=== PATIENT | male | born 1980 | race Caucasian/White ===

== ENCOUNTER 2020-03-06 12:47 | Emergency (ER) | payer MEDICARE, MEDICAID, SELFPAY ==
[2020-03-06] VITALS (10 sets, daily range): BP systolic 113–152; BP diastolic 72–115; PULSE 88–110; RESP 18–24; TEMP 36.7–37.1; O2SAT 92–98; BMI 29.1
--- NOTE | 2020-03-06 14:19 | ED_ITS ---
HPI - Psych General Chief Complaint: Psychiatric Symptoms Stated Complaint: crisis Time Seen by Provider: 03/06/20 13:30 Source: patient Mode of arrival: ambulatory Limitations: no limitations History of Present Illness HPI Narrative: 39 y/o male with history of alcohol abuse, alcoholic gastritis who presents to the ED with suicidal ideation after consuming alcohol earlier today. He states he drank 1 pint of vodka earlier today. He lives in a sober house and recently started drinking again. He knows he messed up and he has been having thoughts of wanting to hurt himself. He reports history of the same with attempt in the past of taking excessive amounts of sleeping pills. Related Data Allergies Allergy/AdvReac Type Severity Reaction Status Date / Time No Known Allergies Allergy Unverified 11/10/19 19:52 [No Known Allergies*] Review of Systems Constitutional: Constitutional: Reports anorexia, Denies chills, Reports difficulty sleeping and Denies fever(s) Eyes: Eyes: Reports no additional eye complaints ENT: Reports system reviewed and no additional complaints, except as documented Cardiovascular: Cardiovascular: Denies chest pain and Reports Epigastric Pain Respiratory: Respiratory: Denies chest congestion, Denies cough and Denies hemoptysis Gastrointestinal: Gastrointestinal: Denies abdominal pain, Denies melena, Reports dyspepsia, Reports heartburn, Denies diarrhea and Denies vomiting Musculoskeletal: Musculoskeletal: Denies myalgias Neurologic: Denies convulsions and Denies seizure-like activity Psychiatric: Psychiatric: Reports abnormal sleep pattern, Reports anxiety, Reports change in appetite, Reports depression, Reports hopelessness, Reports panic attacks and Reports suicidal ideation Endocrine: Endocrine: Reports no additional endocrine complaints Hematologic/Lymphatic: Hematologic/Lymphatic: Reports no additional he matologic/lymphatic complaints Allergic/Immunologic: Allergic/Immunologic: Reports no additional allergic/immunologic complaints [facility] Past Medical History Attestation statement: The following information was validated with the patient. Social History Social History Advance Directives: No Advance Directives Information Provided: Yes Physical Exam Vital Signs: Vital Signs: Last Vital Signs Temp 98.4 F 03/06/20 15:19 Pulse 88 03/06/20 15:19 Resp 18 03/06/20 15:19 BP 113/72 03/06/20 15:19 Pulse Ox 97 03/06/20 15:19 Body Mass Index 29.1 Const: General: cooperative, healthy appearing, comfortable, no acute distress and well developed Orientation/consciousness: patient oriented x3 HENMT: Head: Yes normal to inspection Ears: hearing grossly normal bilaterally General nose exam: Normal external nose present Eyes: General: appearance normal, both eyes and all related structures Pupi ls: Equal, round and reactive pupils present Neck: Neck: Yes normal visual inspection Chest: Chest palpation & inspection: normal inspection of the chest Resp: Effort & Inspection: normal respiratory effort and able to speak in complete sentences Auscultation: clear to auscultation bilaterally Cardio: Rate: regular rate Rhythm: regular rhythm GI: Inspection: Yes normal to inspection Palpation (GI): Soft to palpation and Tenderness to palpation present (GI) in the epigastrum Auscultation: normal bowel sounds Skin: General skin exam: no rashes or lesions noted Neuro: General: patient oriented x3 and moves all extremities Cranial nerv es: Yes Equal, round and reactive pupils present Extrem: General: Yes normal to inspection Psych: Appearance: grossly normal Mental Status: mental status grossly normal Speech and movement: Normal speech and movement present Affect: Labile affect present Attitude: cooperative and Avoids eye contact (attititude/behavior) Thought content: Suicidality present Insight: Fair insight present (Psych) Course Course Course Narrative: 39 y/o male with heavy ETOH use over the last 1.5 weeks presenting with SI after relapse. Admits to drinking earlier today and already concerned he may be going into withdrawal. Asking for Librium with tremors on exam. Utox and bloodwork sent. Will give low dose librium to get ahead of withdrawal symptoms. HR & BP are normal. Will monitor closely. Will have him evaluated by N. [facility] - Psych Lab Data Attestation: I reviewed the patient's lab results. Result diagrams: 03/06/20 15:28 03/06/20 15:28 Labs: Lab Results 03/06/20 03/06/20 03/06/20 Range/Units 14:22 15:28 15:28 WBC 8.0 (4.8-10.8) X10*3/uL RBC 5.77 (4.60-5.80) X10*6/uL Hgb 16.3 (14.0-18.0) g/dl Hct 46.7 (42-52) % MCV 80.9 (80-98) fL MCH 28.2 (27.0-33.0) pg MCHC 34.9 (31.0-36.0) g/dl RDW 13.2 (11.0-16.0) % Plt Count 359 (160-400) X10*3/uL MPV 9.4 (9.4-12.4) fL Immature Gran % (Auto) 0.1 (0.0-0.4) % Neut % (Auto) 75.7 H (45-73) % Lymph % (Auto) 13.1 L (20-40) % [place] % (Auto) 10.8 (2-11) % Eos % (Auto) 0.0 (0-4) % Baso % (Auto) 0.3 (0-2) % Lymph # (Auto) 1.0 L (1.2-4.9) X10*3/uL [place] # (Auto) 0.9 (0.1-1.2) X10*3/uL Eos # (Auto) 0.0 (0.0-0.4) X10*3/uL Baso # (Auto) 0.0 (0.0-0.2) X10*3/uL Abs Immat Gran (auto) 0.01 (0.00-0.03) X10*3/uL Absolute Neuts (auto) 6.0 (2.0-8.3) X10*3/uL Absolute Nucleated RBC 0.000 (0.0-0.012) X10*3/uL Nucleated RBC % (auto) 0.0 (0.0-0.2) /100WBC Urine Opiates Screen Not Detected (Not Detect) Ur Barbiturates Screen Not Detected (Not Detect) Ur Phencyclidine Scrn Not Detected (Not Detect) Ur Amphetamines Screen Not Detected (Not Detect) U Benzodiazepines Scrn Not Detected (Not Detect) Urine Cocaine Screen Not Detected (Not Detect) U Marijuana (THC) Screen Not Detected (Not Detect) Ethyl Alcohol 112 mg/dL Discharge Plan Discharge Clinical Impression: Suicidal ideation, Alcohol abuse
[2020-03-06 15:09] LABS: Amphetamine Screen Urine Not Detected (Not Detect); Barbiturates, Urine Not Detected (Not Detect); Benzodiazepines Screen Urine Not Detected (Not Detect); Cannabinoid Screen Urine Not Detected (Not Detect); Cocaine Screen Urine Not Detected (Not Detect); Opiate Screen Urine Not Detected (Not Detect); Phencyclidine Screen Urine Not Detected (Not Detect)
--- NOTE | 2020-03-06 15:14 | PC.NURSE ---
nurse to nurse given to laurent (anjelica). pt moved to the pod, bed [facility]
[2020-03-06] MEDS: chlordiazePOXIDE HCl 25 MG CAPSULE PO (15:31)
[2020-03-06 15:33] LABS: MANUAL DIFF FLAG NO
--- NOTE | 2020-03-06 15:37 | PC.NURSE ---
Late entry: pt transferred from main ED- pt alert, oriented, pleasant. Pt reports he has been living at a sober living facility but that he 'messed up' for the past week and a half and has been using etoh. Labs drawn, pt medicated as ordered.
[2020-03-06 15:39] LABS: Basophils Percent Auto 0.3 % (0-2); Hematocrit 46.7 % (42-52); Hemoglobin 16.3 g/dl (14.0-18.0); Imm Gran Abs Auto 0.01 X10*3/uL (0.00-0.03); Imm Gran Pct Auto 0.1 % (0.0-0.4); Lymphocytes Percent Auto 13.1 % (20-40); Mean Corpuscular HGB Conc 34.9 g/dl (31.0-36.0); Mean Corpuscular Hemoglobin 28.2 pg (27.0-33.0); Mean Corpuscular Volume 80.9 fL (80-98); Mean Platelet Volume 9.4 fL (9.4-12.4); Monocytes Absolute Auto 0.9 X10*3/uL (0.1-1.2); Monocytes Percent Auto 10.8 % (2-11); Neutrophils Percent Auto 75.7 % (45-73); Platelet Count 359 X10*3/uL (160-400); Red Blood Count 5.77 X10*6/uL (4.60-5.80); Red Cell Distribution Width 13.2 % (11.0-16.0)
[2020-03-06 15:52] LABS: Ethanol 112 mg/dL
[2020-03-06 15:57] LABS: Alanine Aminotransferase 26 U/L (0-40); Albumin Level 5.4 g/dL (3.5-5.0); Alkaline Phosphatase 63 U/L (39-117); Anion Gap 20 (12-20); Aspartate Amino Transferase 26 U/L (5-37); Blood Urea Nitrogen 7 mg/dL (9-16); Calcium 9.9 mg/dL (8.4-10.2); Carbon Dioxide 29 mmol/L (22-29); Chloride 95 mmol/L (96-108); Creatinine Clr Calc Pharmacy 111.6; Estimated Glomerular Filt Rate > 60; Glucose Random 132 mg/dL (60-115); Potassium 3.2 mmol/l (3.3-5.1); Salicylate < 5.0 mg/dL (15-30); Sodium 141 mmol/L (135-145); Total Protein 8.2 g/dL (6.5-8.0)
[2020-03-06 16:09] LABS: Acetaminophen LAB < 1 mcg/mL (<30)
[2020-03-06] MEDS: Potassium Chloride ER 20 MEQ TAB.ER.PRT 60 MEQ PO (16:15)
[2020-03-06 16:46] LABS: COVID-19 Test Negative (Negative); IDNOW Serial# 9DD0AD1C
--- NOTE | 2020-03-06 16:58 | PC.NURSE ---
spoke w/ dr willis re: pt symptoms of withdrawal, hx seizing.
[2020-03-06] MEDS: chlordiazePOXIDE HCl 25 MG CAPSULE 50 MG PO (17:01)
--- NOTE | 2020-03-06 18:34 | PC.NURSE ---
Pt reports only minimal relief of symptoms after librium given. Unable to eat. reporting escalating anxiety, restlessness, and dizziness. Reported to LAURENT Alexandra in main ED.
--- NOTE | 2020-03-06 18:39 | PC.NURSE ---
Reported vital signs, CIWA score to MARC Costa. Pt transferred to main ED. Report given to LAURENT Alexandra
--- NOTE | 2020-03-06 18:45 | PC.NURSE ---
Pt transferred to main ED
[2020-03-06] MEDS: LORazepam 2 MG/ML VIAL IM (19:00)
--- NOTE | 2020-03-06 19:00 | PC.NURSE ---
ASSUMED CARE OF PT. PT RESTING IN STRETCHER AT THIS TIME. PT WAKES TO VERBAL STIMULI, RESPIRATIONS N/L. SKIN W/D. WILL CONTINUE TO MONITOR PT.
--- NOTE | 2020-03-06 19:00 | PC.NURSE ---
medicated with ativan im for gross tremors and etoh withdrawal. sz pads in place. pt has call jhoan.
--- NOTE | 2020-03-06 19:30 | PC.NURSE ---
PT ADMITS TO S/I WITHOUT A PLAN, DENIES H/I, DENIES A/V HALLUCINATIONS. [facility] NURSE AND MD AWARE OF PT. WILL CONTINUE TO MONITOR PT.
--- NOTE | 2020-03-06 19:56 | PC.NURSE ---
PT RESTING QUIETLY IN STRETCHER ON MONITOR WITH A HR OF 110. VS OBTAINED. PT WAKES TO VOICE, SKIN W/D, DENIES ANY COMPLAINTS AT THIS TIME. WILL CONTINUE TO MONITOR PT.
--- NOTE | 2020-03-06 21:57 | PC.NURSE ---
[facility] TO ED TO EVALUATE PT. PT RESTING IN STRETCHER, WAKES TO VERBAL STIMULI, SKIN W/D. PT DENIES ANY S/S OF W/D. PT REMAINS ON MONITOR WITH HR 108. WILL CONTINUE TO MONITOR PT.
[2020-03-06] MEDS: LORazepam 1 MG TABLET 2 MG PO (23:06)
--- NOTE | 2020-03-06 23:21 | PC.NURSE ---
Patient just got transferred from main ED, [facility] finished with assessment, depositions is detox bed search, patient is agreement with d/c plan, CIWA assessed per order scored 8, provider notified/ordered Ativan 2 mg/administered as ordered, will continue to monitor.
[2020-03-07 00:23] VITALS: BP 132/93; PULSE 110; RESP 18; TEMP 36.7; O2SAT 99
--- NOTE | 2020-03-07 06:34 | PC.NURSE ---
Spoke with Liza, [facility] staff, to clarify patient's disposition, notified us to call [facility] at [phone] for further clarification, will continue to monitor.
--- NOTE | 2020-03-07 08:10 | PC.NURSE ---
spoke with [facility], pt is able to be discharged and needs to fins is own bed for detox. pt has list of facilities in room and was advised to call if he still plans to go to detox. will relay information to NURSING STUDENT whe he rounds in pod.
[2020-03-07 08:20] VITALS: BP 148/106; PULSE 128; TEMP 36.9; O2SAT 97
--- NOTE | 2020-03-07 09:11 | PC.NURSE ---
pt came out of room requesting librium. pt does not seem to be in any withdrawal, has been sleeping most of the morning. spoke with Johnny from care team, will call Prov. where pt could potentially be going for detox and make sure ok if pt were to take here at hospital but pt is back in room sleeping at this time.
--- NOTE | 2020-03-07 09:24 | MHC.RECOVSUP ---
Recovery Support note: Patient is a 39 year old Taiwanese speaking male who presented to [facility] intoxicated reporting SI. Patient was cleared by [facility] with a recommendation for patient to go to [facility]. Patient completed intake with [facility] and has an admission time scheduled for 1500. This repairer typewriter awaits the [facility] evaluation to send to [place] (fax- [phone]). This repairer typewriter will be available to assist with arranging transportation for patient.
[2020-03-07 11:32] VITALS: RESP 18
--- NOTE | 2020-03-07 11:33 | PC.NURSE ---
patient currently in room sleeping, will continue to monitor.
[2020-03-07] MEDS: chlordiazePOXIDE HCl 25 MG CAPSULE PO (12:01)
--- NOTE | 2020-03-07 12:03 | PC.NURSE ---
patient requested librium, provider notified and order put in, patient was medicated per order, patient will be going to [facility] for 3pm, will continue to monitor.
--- NOTE | 2020-03-07 14:01 | PC.NURSE ---
patient is pacing in the unit with anticipation of leaving
--- NOTE | 2020-03-07 14:21 | PC.NURSE ---
per xavi, patient is to be discharged to waiting room to await lyft to bring him to [facility].
== END 2020-03-07 14:39 | disposition other institution (70) ==
PROVIDERS: Physician Assistant; Emergency Provider Emergency Medicine Emergency Medical Services
DX: F10.129 Alcohol abuse with intoxication, unspecified (principal); K29.20 Alcoholic gastritis without bleeding; R45.851 Suicidal ideations; Y90.5 Blood alcohol level of 100-119 mg/100 ml; Z20.822 Contact with and (suspected) exposure to COVID-19
CPT/HCPCS: 36415; 80053; 80307; 80320; 85025; 87635; 96372; 99285; G0480; J2060

== ENCOUNTER 2020-03-11 19:00 | Inpatient (IN) | payer MEDICARE, MEDICAID, SELFPAY ==
[2020-03-11 19:11] VITALS: BP 147/112; PULSE 91; RESP 18; TEMP 36.3; O2SAT 96; BMI 25.0
[2020-03-11 20:26] LABS: Amphetamine Screen Urine Not Detected (Not Detect); Barbiturates, Urine Not Detected (Not Detect); Benzodiazepines Screen Urine POSITIVE (Not Detect); Cannabinoid Screen Urine Not Detected (Not Detect); Cocaine Screen Urine Not Detected (Not Detect); Opiate Screen Urine Not Detected (Not Detect); Phencyclidine Screen Urine Not Detected (Not Detect)
[2020-03-11 20:50] VITALS: BP 158/120; PULSE 130; RESP 20; TEMP 36.6; O2SAT 98
--- NOTE | 2020-03-11 21:02 | PC.NURSE ---
ROBERT faxed/called/spoke with Drew/confirmed receipt of referral.
--- NOTE | 2020-03-11 21:22 | ED_ITS ---
HPI - Psych General Chief Complaint: Psychiatric Symptoms Stated Complaint: CRISIS Time Seen by Provider: 03/11/20 20:51 Source: patient Mode of arrival: ambulatory Limitations: no limitations History of Present Illness HPI Narrative: Patient presents to ED for suicidal ideation. Patient was at detox at [place] and while there may persistent suicidal ideation with no plan. Patient denies any auditory or visual hallucinations. Related Data Home Medications Medication Instructions Recorded Confirmed alum-mag hydroxide-simeth [Mylanta] 30 ml PO Q4H PRN 03/11/20 03/11/20 buprenorphine-naloxone [Suboxone] 1 film SUBLINGUAL DAILY 03/11/20 03/11/20 clonidine HCl 0.3 mg PO BID 03/11/20 03/11/20 dextroamphetamine-amphetamine 30 mg PO BID@0630,1630 03/11/20 03/11/20 [Adderall] escitalopram oxalate 20 mg PO DAILY 03/11/20 03/11/20 gabapentin 800 mg PO BID 03/11/20 03/11/20 hydroxyzine pamoate 25 mg PO QID PRN 03/11/20 03/11/20 loperamide 4 mg PO DAILY PRN 03/11/20 03/11/20 lorazepam [Ativan] 1 mg PO BID 03/11/20 03/11/20 melatonin 3 mg PO BEDTIME PRN 03/11/20 03/11/20 methocarbamol 750 mg PO Q8H PRN 03/11/20 03/11/20 multivitamin with iron-mineral 1 tab PO DAILY 03/11/20 03/11/20 [Iron/Multivitamin/Mineral] oxcarbazepine 300 mg PO BID 03/11/20 03/11/20 trazodone 200 mg PO BEDTIME 03/11/20 03/11/20 Allergies Allergy/AdvReac Type Severity Reaction Status Date / Time No Known Allergies Allergy Unverified 11/10/19 19:52 [No Known Allergies*] Review of Systems Review of Systems: Yes all other systems are reviewed and are negative Constitutional: Constitutional: Reports as per HPI and Reports no additional constitutional complaints Eyes: Eyes: Reports as per HPI and Reports no additional eye complaints ENT: Reports system reviewed and no additional complaints, except as documented and Reports as per HPI Cardiovascular: Cardiovascular: Reports as per HPI and Reports no additional cardiovascular complaints Respiratory: Respiratory: Reports as per HPI and Reports no additional respiratory complaints Gastrointestinal: Gastrointestinal: Reports as per HPI and Reports no additional gastrointestinal complaints Musculoskeletal: Musculoskeletal: Reports no additional musculoskeletal complaints and Reports as per HPI Neurologic: Reports system reviewed and no additional complaints, except as documented and Reports as per HPI Psychiatric: Psychiatric: Reports no additional psychiatric complaints, Reports as per HPI and Reports suicidal ideation [facility] Social History Social History Advance Directives: No Advance Directives Information Provided: Yes Physical Exam Vital Signs: Vital Signs: Last Vital Signs Temp 98.2 F 03/11/20 23:40 Pulse 124 H 03/11/20 23:40 Resp 20 03/11/20 23:40 BP 128/85 03/11/20 23:40 Pulse Ox 97 03/11/20 23:40 Body Mass Index 25.0 Const: General: cooperative, healthy appearing, comfortable, no acute distress, well developed, alert, awake and Physically active Orientation/consciousness: patient oriented x3 HENMT: Head: Yes normal to inspection, Yes No palpable skull fracture present, Yes normocephalic and Yes atraumatic Eyes: General: appearance normal, both eyes and all related structures Neck: Neck: Yes normal visual inspection, Yes full ROM, Yes no lymphadenopathy, Yes no meningeal signs, Yes trachea midline, Yes supple and No tender Resp: Effort & Inspection: normal respiratory effort and able to speak in complete sentences Auscultation: clear to auscultation bilaterally Cardio: Jugular venous distension: no JVD Heart sounds: S1 normal heart sound present and S2 normal heart sound present GI: Inspection: Yes normal to inspection and No abdominal wall ecchymosis Palpation (GI): Soft to palpation, not firm, nontender, no guarding and not rigid : General: No CVA tenderness and Yes no CVA tenderness Back/Spine/Pelvis: Back: no CVA tenderness, No CVA tenderness and No back tenderness Skin: General skin exam: no rashes or lesions noted and elasticity normal Neuro: General: patient oriented x3, gait normal, no meningeal signs and CN's II-XI intact bilaterally Cranial nerves: Yes CN's II-XII intact bilaterally Extrem: General: Yes normal to inspection and Yes full ROM Psych: Appearance: grossly normal, well kempt and not disheveled Course Course Course Narrative: Patient will have urine tox sent and be evaluated by [facility] [facility]. Reevaluation(s) Reevaluation #1: Patient evaluated by care team consulted Omayra who states patient will be a voluntary bed search for depression/alcohol abuse. Time: 00:19 MDM - Psych MDM Narrative Medical decision making narrative: Depression Restraints Face to Face Assessment: Face to Face Assessment: Current Situation: After assessment of the patient, a review of the pertinent medical record and a discussion with nursing staff, I feel the patient requires a restrain intervention. Reaction To: [] Medical Condition: [] Behavioral State: [] Continued Need: [] Lab Data Labs: Lab Results 03/11/20 03/11/20 Range/Units 19:57 22:13 Urine Opiates Screen Not Detected (Not Detect) Ur Barbiturates Screen Not Detected (Not Detect) Ur Phencyclidine Scrn Not Detected (Not Detect) Ur Amphetamines Screen Not Detected (Not Detect) U Benzodiazepines Scrn POSITIVE H (Not Detect) Urine Cocaine Screen Not Detected (Not Detect) U Marijuana (THC) Screen Not Detected (Not Detect) COVID-19 (BRYCE) Negative (Negative) COVID-19 Clin Com See Note Discharge Plan Discharge Clinical Impression: Depression Prescriptions: No Action clonidine HCl 0.3 mg Tablet 0.3 mg PO BID RF: 0 oxcarbazepine 300 mg Tablet 300 mg PO BID RF: 0 gabapentin 800 mg Tablet 800 mg PO BID RF: 0 trazodone 100 mg Tablet 200 mg PO BEDTIME RF: 0 lorazepam [Ativan] 1 mg Tablet 1 mg PO BID RF: 0 escitalopram oxalate 20 mg Tablet 20 mg PO DAILY RF: 0 loperamide 2 mg Tablet 4 mg PO DAILY PRN (Reason: Diarrhea) RF: 0 melatonin 3 mg Tablet 3 mg PO BEDTIME PRN (Reason: Insomnia) RF: 0 methocarbamol 750 mg Tablet 750 mg PO Q8H PRN (Reason: Muscle Spasm) RF: 0 hydroxyzine pamoate 25 mg Capsule 25 mg PO QID PRN (Reason: Anxiety) RF: 0 dextroamphetamine-amphetamine [Adderall] 30 mg Tablet 30 mg PO BID@0630,1630 RF: 0 Iron/Multivitamin/Mineral Tablet 1 tab PO DAILY RF: 0 buprenorphine-naloxone [Suboxone] 4-1 mg Film 1 film SUBLINGUAL DAILY RF: 0 alum-mag hydroxide-simeth [Mylanta] 200-200-20 mg/5 mL Suspension 30 ml PO Q4H PRN (Reason: Heartburn) RF: 0
[2020-03-11] MEDS: OXcarbazepine 300 MG TABLET PO (21:36)
[2020-03-11] MEDS: Gabapentin 400 MG CAPSULE 800 MG PO (21:36)
[2020-03-11] MEDS: traZODone HCL 100 MG TABLET 200 MG PO (21:36)
[2020-03-11 21:37] VITALS: BP 158/120; PULSE 130
[2020-03-11] MEDS: LORazepam 1 MG TABLET PO (21:37)
[2020-03-11] MEDS: cloNIDine HCL 0.1 MG TABLET 0.3 MG PO (21:37)
--- NOTE | 2020-03-11 22:20 | PC.NURSE ---
Patient just got just assessed by care team, disposition updated, patient is voluntary in-patient bed search, patient and provider aware.
[2020-03-11 22:48] LABS: COVID-19 Test Negative (Negative); IDNOW Serial# 9DD0AD1C
--- NOTE | 2020-03-11 23:38 | MHC.CARE ---
[facility] unable to provide clinician to evaluate pt until the following morning. CARE team completed evaluation and contacted [facility] to cancel the order. Plan is for voluntary inpt psychiatric placement. If pt decides that he is no longer agreeable for inpt psychiatric treatment, CARE team will meet with pt to discuss and determine appropriate plan of care.
[2020-03-11 23:40] VITALS: BP 128/85; PULSE 124; RESP 20; TEMP 36.8; O2SAT 97
--- NOTE | 2020-03-12 | ECG_ITS ---
Test Reason : MEDICAL CLEARANCE Blood Pressure : / mmHG Vent. Rate : 067 BPM Atrial Rate : 067 BPM P-R Int : 148 ms QRS Dur : 078 ms QT Int : 398 ms P-R-T Axes : -01 008 011 degrees QTc Int : 420 ms Normal sinus rhythm Non specific changess in anterior leads but probably normal variant No previous ECGs available Referred By: Fidelina Benson Electronically Signed By:SKYE NGUYỄN
--- NOTE | 2020-03-12 00:22 | MHC.CARE ---
Bedsearch Note: No beds available on [facility]. No discharges anticipated for tomorrow. Eval and clinical faxed to the following: [facility] p: [phone] p: [address] [place] [address] p: [phone] f: [phone] f: [phone] f: [phone] CARE team will follow up with facilities in the morning.
[2020-03-12] MEDS: Melatonin 3 MG TABLET PO (00:44)
[2020-03-12] MEDS: hydrOXYzine HCL 25 MG TABLET PO (00:44)
[2020-03-12] MEDS: Amphetamine Mixed Salts 10 MG TABLET 30 MG PO ×2 (05:49→13:30)
[2020-03-12 06:17] VITALS: BP 120/89; PULSE 117; RESP 20; TEMP 36.9; O2SAT 97
--- NOTE | 2020-03-12 06:59 | PC.NURSE ---
Report recieved. Pt currently resting, denies complaints. Pt is inpatient bedsearch.
[2020-03-12 08:57] VITALS: BP 127/92; PULSE 116
[2020-03-12] MEDS: cloNIDine HCL 0.1 MG TABLET 0.3 MG PO ×2 (08:57→22:12)
[2020-03-12] MEDS: OXcarbazepine 300 MG TABLET PO ×2 (08:58→22:14)
[2020-03-12] MEDS: LORazepam 1 MG TABLET PO ×4 (08:58→22:12)
[2020-03-12] MEDS: Escitalopram Oxalate 20 MG TABLET PO (08:58)
[2020-03-12] MEDS: Buprenorphine/Naloxone 4/1 mg FILM 1 FILM SUBLINGUAL (08:58)
[2020-03-12] MEDS: Gabapentin 400 MG CAPSULE 800 MG PO ×2 (08:58→22:11)
[2020-03-12 09:09] VITALS: BP 127/92; PULSE 116; RESP 16; TEMP 36.4; O2SAT 98
--- NOTE | 2020-03-12 10:44 | MHC.CARE ---
T/w offered pt CV for admission to and pt signed willingly.
[2020-03-12] MEDS: LORazepam 1 MG TABLET 2 MG PO (12:34)
--- NOTE | 2020-03-12 12:36 | PC.NURSE ---
Pt noted to punch the wall, he stated he is getting agitated. Provider notified, pt accepted PRN medication.
--- NOTE | 2020-03-12 13:29 | PC.NURSE ---
Pt reporting extreme anxiety, states that the ativan he took before is not helping, requesting adderall at this time, states he usually takes it at 0800 and 1400, provider notified, ok to give medicaiton now
--- NOTE | 2020-03-12 14:29 | PC.NURSE ---
Nurse to nurse completed with Miesha from [facility].
--- NOTE | 2020-03-12 16:15 | MHC.CARE ---
Accompanied patient to [facility] with vp security without issue.
[2020-03-12 16:30] VITALS: BP 167/107; PULSE 111; TEMP 36.7
[2020-03-12] MEDS: Thiamine HCL 100 MG TABLET 200 MG PO (19:43)
--- NOTE | 2020-03-12 20:46 | PC.NURSE ---
Pt signed 3-day up 03/15/20.
[2020-03-12] MEDS: traZODone HCL 100 MG TABLET 200 MG PO (22:11)
[2020-03-12 22:12] VITALS: BP 167/112; PULSE 112
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
[2020-03-13 01:20] VITALS: BP 117/87; PULSE 132; RESP 18; TEMP 36.1; O2SAT 98
[2020-03-13] MEDS: Cyclobenzaprine HCl 10 MG TABLET PO (01:23)
[2020-03-13] MEDS: LORazepam 1 MG TABLET PO ×3 (01:23→22:01)
[2020-03-13] MEDS: Acetaminophen 325 MG TABLET 650 MG PO (01:23)
[2020-03-13] MEDS: hydrOXYzine HCL 25 MG TABLET PO (01:23)
[2020-03-13 06:25] VITALS: BP 120/69; PULSE 78; RESP 18; TEMP 36.4; O2SAT 98
[2020-03-13 08:12] LABS: MANUAL DIFF FLAG NO
[2020-03-13 08:15] LABS: Basophils Percent Auto 0.4 % (0-2); Eosinophils Absolute Auto 0.1 X10*3/uL (0.0-0.4); Eosinophils Percent Auto 2.9 % (0-4); Hematocrit 41.4 % (42-52); Hemoglobin 13.9 g/dl (14.0-18.0); Imm Gran Abs Auto 0.04 X10*3/uL (0.00-0.03); Imm Gran Pct Auto 0.9 % (0.0-0.4); Lymphocytes Absolute Auto 1.5 X10*3/uL (1.2-4.9); Lymphocytes Percent Auto 33.9 % (20-40); Mean Corpuscular HGB Conc 33.6 g/dl (31.0-36.0); Mean Corpuscular Hemoglobin 28.8 pg (27.0-33.0); Mean Corpuscular Volume 85.9 fL (80-98); Mean Platelet Volume 10.1 fL (9.4-12.4); Monocytes Absolute Auto 0.7 X10*3/uL (0.1-1.2); Neutrophils Absolute Auto 2.1 X10*3/uL (2.0-8.3); Neutrophils Percent Auto 45.9 % (45-73); Platelet Count 218 X10*3/uL (160-400); Red Blood Count 4.82 X10*6/uL (4.60-5.80); Red Cell Distribution Width 14.1 % (11.0-16.0); White Blood Count 4.5 X10*3/uL (4.8-10.8)
[2020-03-13] MEDS: Gabapentin 400 MG CAPSULE 800 MG PO ×2 (08:47→22:00)
[2020-03-13 08:48] VITALS: BP 120/69; PULSE 78
[2020-03-13] MEDS: cloNIDine HCL 0.1 MG TABLET 0.3 MG PO (08:48)
[2020-03-13] MEDS: Thiamine HCL 100 MG TABLET PO (08:49)
[2020-03-13] MEDS: Escitalopram Oxalate 20 MG TABLET PO (08:49)
[2020-03-13] MEDS: Buprenorphine/Naloxone 4/1 mg FILM 1 FILM SUBLINGUAL (08:50)
[2020-03-13] MEDS: OXcarbazepine 300 MG TABLET PO (08:50)
[2020-03-13 08:53] LABS: Alanine Aminotransferase 20 U/L (0-40); Albumin Level 4.2 g/dL (3.5-5.0); Alkaline Phosphatase 62 U/L (39-117); Anion Gap 12 (12-20); Aspartate Amino Transferase 17 U/L (5-37); Bilirubin Total < 0.2 mg/dL (0.0-1.0); Blood Urea Nitrogen 14 mg/dL (9-16); Calcium 8.9 mg/dL (8.4-10.2); Carbon Dioxide 28 mmol/L (22-29); Chloride 106 mmol/L (96-108); Cholesterol 205 mg/dL; Creatinine Clr Calc Pharmacy 130.4; Estimated Glomerular Filt Rate > 60; Glucose Random 98 mg/dL (60-115); HDL Cholesterol 47 mg/dL; LDL Cholesterol Calculated 81 mg/dl; Potassium 4.6 mmol/l (3.3-5.1); Sodium 141 mmol/L (135-145); Total Protein 6.4 g/dL (6.5-8.0); Triglycerides 386 mg/dL
[2020-03-13 09:13] LABS: TSH reflex Free T4 1.73 mIU/mL (0.32-4.0)
[2020-03-13] MEDS: QUEtiapine Fumarate 100 MG TABLET PO (09:25)
[2020-03-13] MEDS: LORazepam 1 MG TABLET 2 MG PO (09:26)
[2020-03-13 09:31] LABS: Folate 9.2 ng/mL (> or = 4.0); Vitamin B12 234 pg/mL (200-900)
[2020-03-13 09:50] LABS: Estimated Average Glucose 105 mg/dL; Hemoglobin A1c % 5.3 %
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
[2020-03-13] MEDS: traZODone HCL 100 MG TABLET 200 MG PO (22:01)
[2020-03-13] MEDS: OXcarbazepine 300 MG TABLET 600 MG PO (22:02)
[2020-03-13 22:03] VITALS: BP 118/59; PULSE 89
[2020-03-13] MEDS: cloNIDine HCL 0.2 MG TABLET PO (22:03)
[2020-03-13 22:05] VITALS: BP 118/59; PULSE 89; TEMP 36.2
[2020-03-14 06:15] VITALS: BP 103/59; PULSE 77; RESP 18; TEMP 36.6; O2SAT 96
--- NOTE | 2020-03-14 13:11 | PC.NURSE ---
PT IS READY AND AWARE FOR DISCHARGE ON 03/14/2020. PT IS INSISTING HE IS SENT HOME. PT IS NOT TAKING MEDICATIONS BUT HAS BEEN CALM. PT ANSWERS QUESTIONS APPROPRIATELY. PT DENIES SI/HI. PT DENIES AUDITORY OR VISUAL HALLUCINATIONS. PT DOES NOT HAVE A PROVIDER BUT DOES NOT WANT TO SIGN A RELEASE FORM. PT ALLOWED RN MAGALY EVIEW DISCHARGE MATERIAL AND MEDICATION TEACHING. PT IS NOT DISPLAYING WITHDRAWAL SYMPTOMS ANYMORE. HE DECLINES DRUG OR ALCOHOL CRAVINGS. PT REPORTS THAT HE IS EXPERIENCING ANXIETY BUT IT IS MANAGEABLE. PT IS NOT EXPERIENCING DEPRESSION.
--- NOTE | 2020-03-14 13:45 | P.DS_ITS ---
DS: Providers Provider Date of Service: 03/14/20 Date of admission: 03/12/20 15:29 Date of discharge: 03/14/20 Primary care physician: Unknown Physician Attending physician on discharge: Selena Coleman DS: Diagnosis Discharge Diagnosis (1) Mood disorder: Status: Acute (2) Alcohol use disorder, moderate, dependence: Status: Acute (3) Opioid dependence: Status: Acute DS: Medications Discharge Medications Home Medications: Previous Rx's Medication Instructions Recorded clonidine HCl 0.2 mg PO TID 7 Days #21 tab 03/14/20 escitalopram oxalate 20 mg PO DAILY 15 Days #15 tab 03/14/20 multivitamin,tx-minerals [Vitamins 1 tab PO DAILY 30 Days #30 tab 03/14/20 and Minerals] oxcarbazepine 600 mg PO TID #60 tab 03/14/20 thiamine mononitrate (vit B1) 100 mg PO DAILY 30 Days #30 tab 03/14/20 trazodone 200 mg PO BEDTIME 15 Days #30 tab 03/14/20 Discharge Plan Discharge Anticipated Discharge Date/Time: 03/14/20 15:36 Patient Disposition: Home, Self-Care Referrals: Physician,Unknown [Primary Care Provider] - Discharge Medications: New oxcarbazepine 300 mg Tablet 600 mg PO TID Qty: 60 RF: 0 clonidine HCl 0.2 mg Tablet 0.2 mg PO TID 7 Days Qty: 21 RF: 0 trazodone 100 mg Tablet 200 mg PO BEDTIME 15 Days Qty: 30 RF: 0 Vitamins and Minerals Tablet 1 tab PO DAILY 30 Days Qty: 30 RF: 0 escitalopram oxalate 20 mg Tablet 20 mg PO DAILY 15 Days Qty: 15 RF: 0 thiamine mononitrate (vit B1) 100 mg Tablet 100 mg PO DAILY 30 Days Qty: 30 RF: 0 Discontinued clonidine HCl 0.3 mg Tablet 0.3 mg PO BID RF: 0 oxcarbazepine 300 mg Tablet 300 mg PO BID RF: 0 gabapentin 800 mg Tablet 800 mg PO BID RF: 0 trazodone 100 mg Tablet 200 mg PO BEDTIME RF: 0 lorazepam [Ativan] 1 mg Tablet 1 mg PO BID RF: 0 escitalopram oxalate 20 mg Tablet 20 mg PO DAILY RF: 0 loperamide 2 mg Tablet 4 mg PO DAILY PRN (Reason: Diarrhea) RF: 0 melatonin 3 mg Tablet 3 mg PO BEDTIME PRN (Reason: Insomnia) RF: 0 methocarbamol 750 mg Tablet 750 mg PO Q8H PRN (Reason: Muscle Spasm) RF: 0 hydroxyzine pamoate 25 mg Capsule 25 mg PO QID PRN (Reason: Anxiety) RF: 0 dextroamphetamine-amphetamine [Adderall] 30 mg Tablet 30 mg PO BID@0630,1630 RF: 0 Iron/Multivitamin/Mineral Tablet 1 tab PO DAILY RF: 0 buprenorphine-naloxone [Suboxone] 4-1 mg Film 1 film SUBLINGUAL DAILY RF: 0 alum-mag hydroxide-simeth [Mylanta] 200-200-20 mg/5 mL Suspension 30 ml PO Q4H PRN (Reason: Heartburn) RF: 0 Discharge Orders: Discharge Order (Routine); Ordered 03/14/20 Ordered By: Selena Coleman Diet: advance to usual diet Activity on Discharge: As tolerated Stand Alone Forms: Patient Portal Discharge page Visit Report Forms: Patient Portal Discharge page Care Plan Goals: 1. Follow up with referrals and OP psychiatric and substance use treatment Health Concerns: 1. Follow up with PCP Plan of Treatment: 1. Follow up with OP providers Mental Status Exam Mental Status Exam Narrative: Appearance: casually groomed, improved hygiene, in NAD Behavior: less irritable, superficially cooperative Psychomotor: no agitation or retardation noted Speech: clear, normal rate/rhythm, spontaneous TP: linear TC: no signs of psychosis, wanting to be discharged soon Mood: better Affect: irritable Ah/VH: none Delusions: none Memory/cog: alert, oriented x 3. grossly intact to conversational testing. Data Data Completed and Pending Completed studies during hospitalization [Text1]: 03/11/20 03/11/20 03/13/20 19:57 22:13 08:01 WBC RBC Hgb Hct MCV MCH MCHC RDW Plt Count MPV Immature Gran % (Auto) Neut % (Auto) Lymph % (Auto) [place] % (Auto) Eos % (Auto) Baso % (Auto) Lymph # (Auto) [place] # (Auto) Eos # (Auto) Baso # (Auto) Abs Immat Gran (auto) Absolute Neuts (auto) Absolute Nucleated RBC Nucleated RBC % (auto) Sodium 141 Potassium 4.6 D Chloride 106 Carbon Dioxide 28 Anion Gap 12 BUN 14 D Creatinine 0.75 Estim Creat Clear Calc 130.4 Estimated GFR > 60 Random Glucose 98 Estimat Average Glucose Hemoglobin A1c % Calcium 8.9 D Total Bilirubin < 0.2 AST 17 ALT 20 Alkaline Phosphatase 62 Total Protein 6.4 L D Albumin 4.2 D Triglycerides Cholesterol LDL Cholesterol, Calc HDL Cholesterol Vitamin B12 Folate TSH Urine Opiates Screen Not Detected Ur Barbiturates Screen Not Detected Ur Phencyclidine Scrn Not Detected Ur Amphetamines Screen Not Detected U Benzodiazepines Scrn POSITIVE H Urine Cocaine Screen Not Detected U Marijuana (THC) Screen Not Detected COVID-19 (BRYCE) Negative COVID-19 Clin Com See Note 03/13/20 03/13/20 03/13/20 08:01 08:01 08:01 WBC 4.5 L RBC 4.82 Hgb 13.9 L Hct 41.4 L MCV 85.9 D MCH 28.8 MCHC 33.6 RDW 14.1 Plt Count 218 D MPV 10.1 Immature Gran % (Auto) 0.9 H Neut % (Auto) 45.9 Lymph % (Auto) 33.9 [place] % (Auto) 16.0 H Eos % (Auto) 2.9 Baso % (Auto) 0.4 Lymph # (Auto) 1.5 [place] # (Auto) 0.7 Eos # (Auto) 0.1 Baso # (Auto) 0.0 Abs Immat Gran (auto) 0.04 H Absolute Neuts (auto) 2.1 Absolute Nucleated RBC 0.000 Nucleated RBC % (auto) 0.0 Sodium Potassium Chloride Carbon Dioxide Anion Gap BUN Creatinine Estim Creat Clear Calc Estimated GFR Random Glucose Estimat Average Glucose 105 Hemoglobin A1c % 5.3 Calcium Total Bilirubin AST ALT Alkaline Phosphatase Total Protein Albumin Triglycerides 386 Cholesterol 205 LDL Cholesterol, Calc 81 HDL Cholesterol 47 Vitamin B12 Folate TSH 1.73 Urine Opiates Screen Ur Barbiturates Screen Ur Phencyclidine Scrn Ur Amphetamines Screen U Benzodiazepines Scrn Urine Cocaine Screen U Marijuana (THC) Screen COVID-19 (BRYCE) COVID-19 [facility] Com 03/13/20 08:01 WBC RBC Hgb Hct MCV MCH MCHC RDW Plt Count MPV Immature Gran % (Auto) Neut % (Auto) Lymph % (Auto) [place] % (Auto) Eos % (Auto) Baso % (Auto) Lymph # (Auto) [place] # (Auto) Eos # (Auto) Baso # (Auto) Abs Immat Gran (auto) Absolute Neuts (auto) Absolute Nucleated RBC Nucleated RBC % (auto) Sodium Potassium Chloride Carbon Dioxide Anion Gap BUN Creatinine Estim Creat Clear Calc Estimated GFR Random Glucose Estimat Average Glucose Hemoglobin A1c % Calcium Total Bilirubin AST ALT Alkaline Phosphatase Total Protein Albumin Triglycerides Cholesterol LDL Cholesterol, Calc HDL Cholesterol Vitamin B12 234 Folate 9.2 TSH Urine Opiates Screen Ur Barbiturates Screen Ur Phencyclidine Scrn Ur Amphetamines Screen U Benzodiazepines Scrn Urine Cocaine Screen U Marijuana (THC) Screen COVID-19 (BRYCE) COVID-19 Clin Com DS: Summary Hospital Course Hospital Course: Mr. Cortes is a 39 year-old male with hx of polysubstance use including opioid and alcohol use. He initially self-presented to [facility] on 03/11/2020 reporting SI but later requested transfer to detox unit at [facility]. He was brought to [facility] from [facility] due to patient reporting SI. It appears that while in the program pt, had access to contraband alcohol. On the unit, Pt presented as tremulous, anxious, very irritable. He was initiate d in [facility]. He continued to present as easily irritable and punched the wall of the nurses station when asked to move away from the door. He did agree to take PRN seroquel 100mg and Ativan 2mg po. He was minimally cooperative with treatment team. Once in the unit, he adamantly denied suicidal or homicidal ideation. He reported that his only brother with whom he had limited contact is battling with leukemia and he wanted to go and see him in [place]. He agreed to referrals for psychiatric and substance use treatment including suboxone clinic. However, he demanded to be discharged as soon as possible. Collateral information was gathered from his friend Kay, who reports that most of his suicidal ideation are due to frustration but not necessarily due to having a plan or intent to hurt himself. Kay reported that he has struggled to stay in a program for substance use and has been using heroin more often than he admitted to current primary treatment team. After discussing risks, benefits and alternative treatment options, pt insists on being prescribed adderall. It was explained to him that due to severe irritability, explosive behaviors and risks of misuse/abuse of this medication, adderall will not be prescribed. He was continued on trileptal which was titrated to 600mg po TID for irritability and impulsivity. He was also continued on celexa, although wondering if this medication is more activating than therapeutic. He was continued on trazodone 200mg po qhs for sleep and clonidine 0.2mg po TID. Time spent discussing smoking cessation with patient: 3 to 10 minutes Status at Discharge Cognitive/behavioral status at discharge: Pt appears much calmer, in much more behavioral control and less reactive. He denies suicidal or homicidal ideation. He agrees to referrals for OP psych and substance use treatment but unclear if pt in fact plans to follow up with these services. Functional status at discharge: independent ambulation Overall status at discharge: patient is back to baseline Time Spent with Patient Time attestation: Total time spent providing and/or coordinating discharge services: Time spent: Greater than 30 minutes
== END 2020-03-14 15:25 | disposition home or self-care (01) | DRG 885 ==
LOC: HO.ED 03-12 15:46 → HO.PM5 03-12 15:47
PROVIDERS: Physician Assistant; Admitting Provider Social Worker; Emergency Provider Emergency Medicine; Visit Provider Social Worker
DX: F39 Unspecified mood [affective] disorder (principal); R45.851 Suicidal ideations; F11.20 Opioid dependence, uncomplicated; F10.20 Alcohol dependence, uncomplicated; Z20.822 Contact with and (suspected) exposure to COVID-19; Z79.899 Other long term (current) drug therapy
CPT/HCPCS: 36415; 80053; 80061; 80307; 82607; 82746; 83036; 84443; 85025; 87635; 93005; 99222; 99239; 99285; J0573

== ENCOUNTER 2020-04-16 12:08 | Outpatient (REF) | payer MEDICARE, MEDICAID, SELFPAY | END 2020-04-16 12:09 | disposition home or self-care (01) | LOC: HO.LAB 12:08 | PROVIDERS: Visit Provider Internal Medicine | DX: Z20.822 Contact with and (suspected) exposure to COVID-19 (principal) | CPT/HCPCS: 36415; C9803; U0003; U0005 ==